=== PATIENT | male | born 1990 | race Caucasian/White ===

== ENCOUNTER 2025-03-09 16:31 | Outpatient (CLI) | payer OTHER, SELFPAY ==
--- NOTE | 2025-03-09 16:45 | CRLHL7_ITS ---
For Patients: As a result of the Century Cures Act, medical imaging exams and procedure reports are released immediately into your electronic medical record. You may view this report before your referring provider. If you have questions, please contact your health care provider. INDICATION: Lump felt on right testicle for 6 months (located superiorly) COMPARISON: none TECHNIQUE: Sandoval scale imaging was performed of the scrotum. In addition color Doppler and spectral Doppler analysis was performed of the testes. FINDINGS: The testes demonstrate normal arterial and venous blood flow on color Doppler and spectral Doppler analysis. The testes have uniform echogenicity with no evidence of a suspicious mass or area of inflammation. The right testis measures 5.3 x 2.5 x 3.5 cm in size and the left testis measures 4.9 x 2.4 x 3.3 cm. Left epididymal head cyst measures 3 x 2 x 2 millimeters. Right epididymal head cyst measures 3 x 2 x 3 millimeters. There is no evidence of a hydrocele or varicocele. IMPRESSION: Normal testicles. Small bilateral epididymal head cysts. Dictated by Isauro Tee MD @ 03/13/2025 10:41:28 PM (Electronically Signed)
== END 2025-03-09 16:32 | disposition home or self-care (01) ==
PROVIDERS: Visit Provider Surgery
DX: N50.89 Other specified disorders of the male genital organs (principal); L72.0 Epidermal cyst
CPT/HCPCS: 76870; 93976